=== PATIENT | male | born 2000 | race Caucasian/White ===

== ENCOUNTER 2023-08-17 16:55 | Emergency (ER) | payer SELFPAY ==
[2023-08-17 16:59] VITALS: BP 145/88; PULSE 86; TEMP 36.8; O2SAT 99; BMI 21.4
--- NOTE | 2023-08-17 17:07 | XR_ITS ---
The [address] [address] Patient Name: NOHEMI WELLINGTON MRN: [id number] date: 2000 Sex: M Assigned Patient Location: ER Current Patient Location: ED.MAIN Accession/Order Number: [id number] Exam Date: 08/17/2023 17:20 Report Date: 08/17/2023 18:16 At the request of: MINA SOLIS Procedure: XR ankle LT min 3V IMAGES REVIEWED: XR foot LT min 3V, XR ankle LT min 3V COMPARISON: None available. CLINICAL INDICATION: pain, lateral FINDINGS/IMPRESSION: Tiny density adjacent to the anterolateral calcaneus only well seen on the frontal view of the left foot series, questionable and age-indeterminate tiny extensor digitorum brevis avulsion fracture fragment. Correlate for focal tenderness. No priors available for comparison. Otherwise the left ankle and left foot appear intact. Mild medial ankle and dorsal hindfoot-midfoot soft tissue swelling. Electronically authenticated by: JAD SIEGEL Date: 08/17/2023 18:16
--- NOTE | 2023-08-17 17:07 | XR_ITS ---
The [address] [address] Patient Name: NOHEMI WELLINGTON MRN: [id number] date: 2000 Sex: M Assigned Patient Location: ER Current Patient Location: ED.MAIN Accession/Order Number: [id number] Exam Date: 08/17/2023 17:20 Report Date: 08/17/2023 18:16 At the request of: MINA SOLIS Procedure: XR foot LT min 3V IMAGES REVIEWED: XR foot LT min 3V, XR ankle LT min 3V COMPARISON: None available. CLINICAL INDICATION: pain, lateral FINDINGS/IMPRESSION: Tiny density adjacent to the anterolateral calcaneus only well seen on the frontal view of the left foot series, questionable and age-indeterminate tiny extensor digitorum brevis avulsion fracture fragment. Correlate for focal tenderness. No priors available for comparison. Otherwise the left ankle and left foot appear intact. Mild medial ankle and dorsal hindfoot-midfoot soft tissue swelling. Electronically authenticated by: JAD SIEGEL Date: 08/17/2023 18:16
--- NOTE | 2023-08-17 17:51 | ED.GENADUL1 ---
HPI HPI - General Adult General Chief complaint: Extremity Injury, Lower Stated complaint: LOWER EXTREMITY INJURY Time Seen by Provider: 08/17/23 17:03 Source: patient Mode of arrival: walk-in Limitations: no limitations History of Present Illness HPI narrative: 23-year-old male to the emergency room chief complaint ankle injury after he was balling to hard . He reports he rolled the ankle inwards. Been painful to walk on but he has been able to do so. He reports swelling over his ankle. No previous injuries to this ankle. No other injuries. He is otherwise at his baseline health. Related Data Allergies Allergy/AdvReac Type Severity Reaction Status Date / Time codeine Allergy Verified 08/17/23 17:03 Sulfa (Sulfonamide Allergy Verified 08/17/23 17:03 Antibiotics) Penicillins AdvReac Severe Hives Verified 08/17/23 17:03 Opioid HPI Opioid Management Most Recent Opioid Data: No Data to Display Review of Systems ROS Status of ROS 10 or more systems reviewed and unremarkable except as noted in history and below Exam Narrative Exam Narrative: Left Lower Extremity: DP and PT pulses intact. Limb is similar color and temperature to the contralateral limb. Mild ankle swelling. No ecchymosis. No medial malleolus tenderness. + lateral malleolus tenderness. + tenderness at the base of the fifth metatarsal. No midfoot tenderness. No fibular head tenderness. Able to bear weight with arches maintained. Sensation is intact over the foot and lower leg. Dorsiflexion/plantar flexion, knee flexion/extension, hip flexion/extension are grossly intact by strength testing. Constitutional Vital Signs, click to edit/add: Last Vital Signs Temp 98.2 F 08/17/23 16:59 Pulse 86 08/17/23 16:59 Resp 18 08/17/23 16:59 BP 145/88 H 08/17/23 16:59 Pulse Ox 99 08/17/23 16:59 O2 Del Method Room Air 08/17/23 16:59 Course Vital Signs Vital signs: Vital Signs Temperature 98.2 F 08/17/23 16:59 Pulse Rate 86 08/17/23 16:59 Respiratory Rate 18 08/17/23 16:59 Blood Pressure 145/88 H 08/17/23 16:59 Pulse Oximetry 99 08/17/23 16:59 Oxygen Delivery Method Room Air 08/17/23 16:59 Temperature 98.2 F 08/17/23 16:59 Pulse Rate 86 08/17/23 16:59 Respiratory Rate 18 08/17/23 16:59 Blood Pressure 145/88 H 08/17/23 16:59 Pulse Oximetry 99 08/17/23 16:59 Oxygen Delivery Method Room Air 08/17/23 16:59 Medical Decision Making MDM Narrative Medical decision making narrative: 23-year-old male with injury to his ankle. Vital stable, the patient is afebrile. The limb is neurovascularly intact. X-rays to be performed. He declines any pain medication. X-ray possible avulsion fracture. He is placed in a boot. He is given podiatry follow-up. Return glasses were discussed. All questions were answered. The patient was discharged home. Imaging Data foot imaging: Attestation: I have reviewed the pertinent imaging results. Discharge Plan Discharge Stand Alone Forms: Portal Instructions Chief Complaint: Extremity Injury, Lower Clinical Impression: Ankle fracture Patient Disposition: Home, Self-Care Time of Disposition Decision: 18:23 Condition: Good Mode of Transportation: Private Vehicle Print Language: Croatian Instructions: Ankle Fracture (ED), Walking Boot (ED) Referrals: Physician,Non-Staff, [Primary Care Provider] - 1 week Jose Faulkner DPM [Physician] - 1 week
== END 2023-08-17 18:35 | disposition home or self-care (01) ==
PROVIDERS: Emergency Provider Student in an Organized Health Care Education/Training Program
DX: S82.892A Other fracture of left lower leg, initial encounter for closed fracture (principal); X50.9XXA Other and unspecified overexertion or strenuous movements or postures, initial encounter; Y93.67 Activity, basketball
CPT/HCPCS: 73610; 73630; 99284

== ENCOUNTER 2023-09-02 08:34 | Outpatient (OUT) | payer SELFPAY ==
--- NOTE | 2023-09-02 | XR_ITS ---
The [address] [address] Patient Name: NOHEMI WELLINGTON MRN: [id number] date: 2000 Sex: M Assigned Patient Location: Current Patient Location: Accession/Order Number: [id number] Exam Date: 09/02/2023 13:30 Report Date: 09/02/2023 16:46 At the request of: MARK SPANGLER Procedure: XR foot LT min 3V PROCEDURE: XR foot LT min 3V COMPARISON: 08/17/2023 HISTORY: LEFT FOOT PAIN FINDINGS: BONES:No fracture, acute abnormality, or significant arthropathy. Previously identified punctate calcific density along the lateral hindfoot is no longer present SOFT TISSUES:Negative. No visible soft tissue swelling. EFFUSION:None visible. OTHER: Negative. XR/XR foot LT min 3V IMPRESSION: No acute radiographic abnormality Electronically authenticated by: BASSAM MILLIGAN Date: 09/02/2023 16:46
== END 2023-09-02 08:35 | disposition home or self-care (01) ==
LOC: EC 08:35
PROVIDERS: Visit Provider Podiatrist Foot & Ankle Surgery
DX: M79.672 Pain in left foot (principal)
CPT/HCPCS: 73630